=== PATIENT | female | born 1955 | race Asian ===

== ENCOUNTER 2022-09-13 15:36 | Emergency (ER) | payer MEDICARE ==
[~2022-09-13] VITALS: Ht 152.4 cm; Wt 61.4 kg
[2022-09-13] MEDS ORDERED: LOSA-382 PO (15:43)
[2022-09-13] MEDS ORDERED: HYDR25TA2 PO (15:43)
[2022-09-13] MEDS ORDERED: METO-408 PO (15:43)
[2022-09-13] MEDS ORDERED: METF-910 PO (15:43)
[2022-09-13] MEDS ORDERED: EMPA10TA3 PO (15:43)
[2022-09-13 16:12] LABS: BASOPHILS % (AUTO) 0.4 % (0.0-2.0); EOSINOPHILS % (AUTO) 2.5 % (1.0-6.0); HEMATOCRIT 41.9 % (36-46); HEMOGLOBIN 13.6 g/dL (12.0-16.0); LYMPHOCYTES # (AUTO) 0.7 K/uL (1.0-4.8); LYMPHOCYTES % (AUTO) 9.2 % (22.0-44.0); MEAN CORPUSCULAR HEMOGLOBIN 26.8 pg (26.0-34.0); MEAN CORPUSCULAR HGB CONC 32.3 G/dL (31.0-37.0); MEAN CORPUSCULAR VOLUME 83 fL (80-100); MONOCYTES # (AUTO) 0.5 K/uL (0.1-1.0); MONOCYTES % (AUTO) 6.5 % (2.0-9.0); NEUTROPHILS # (AUTO) 6.6 K/uL (1.8-7.7); NEUTROPHILS % (AUTO) 81.4 % (40.0-70.0); PLATELET COUNT (AUTO) 193 K/uL (150-450); RED BLOOD CELL COUNT(AUTO) 5.07 MIL/uL (4.00-5.20); RED CELL DISTRIBUTION WIDTH 14.5 % (11.5-14.5)
[2022-09-13] MEDS ORDERED: ROSU40 PO (16:37)
[2022-09-13] MEDS ORDERED: EMPA25TA3 PO (16:37)
[2022-09-13] MEDS ORDERED: METF-1211 PO (16:37)
[2022-09-13 17:15] VITALS: BP 136/75
[2022-09-13 17:41] LABS: CALCIUM, TOTAL 9.6 mg/dL (8.8-10.5); CREATININE 1.09 mg/dL (0.60-1.30); POTASSIUM 3.3 mmol/L (3.5-5.1)
== END 2022-09-13 18:07 | disposition home or self-care (01) ==
LOC: EMS 15:52
DX: R11.2 Nausea with vomiting, unspecified (principal); E11.9 Type 2 diabetes mellitus without complications; I10 Essential (primary) hypertension; Z88.6 Allergy status to analgesic agent
CPT/HCPCS: 80048; 82962; 84484; 85025; 93005; 99284